=== PATIENT | female | born 1980 | race Caucasian/White ===

== ENCOUNTER 2024-01-22 15:46 | Emergency (ER) | payer OTHER ==
[~2024-01-22] VITALS: Ht 180.3 cm; Wt 57.7 kg
[2024-01-22 16:45] VITALS: BP 139/93; PULSE 102; RESP 16; O2SAT 99
== END 2024-01-22 18:07 | disposition left against medical advice (07) ==
LOC: ER 15:46
DX: M25.512 Pain in left shoulder (principal); R07.81 Pleurodynia; M54.2 Cervicalgia; M25.522 Pain in left elbow; Z53.21 Procedure and treatment not carried out due to patient leaving prior to being seen by health care provider
CPT/HCPCS: 71101; 73000; 73030; 73080

== ENCOUNTER 2025-02-02 14:22 | Emergency (ER) | payer OTHER ==
[~2025-02-02] VITALS: Ht 157.5 cm; Wt 59.0 kg
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
[2025-02-02 16:47] VITALS: BP 129/91; PULSE 95; RESP 16; TEMP 98.7; O2SAT 98
== END 2025-02-02 16:49 | disposition home or self-care (01) ==
LOC: EDBD 14:22 → ER 14:22
DX: S90.32XA Contusion of left foot, initial encounter (principal); S40.012A Contusion of left shoulder, initial encounter; Z90.49 Acquired absence of other specified parts of digestive tract; Z59.00 Homelessness unspecified; X58.XXXA Exposure to other specified factors, initial encounter; Y93.89 Activity, other specified; Y92.89 Other specified places as the place of occurrence of the external cause; Y99.8 Other external cause status
CPT/HCPCS: 73030; 73620